=== PATIENT | male | born 2000 | race Two or more races ===

== ENCOUNTER 2022-01-22 10:00 | Outpatient (CLI) | payer OTHER | END 2022-01-22 10:07 | disposition home or self-care (01) | LOC: LAB 10:00 | PROVIDERS: ATTEND Internal Medicine Hematology & Oncology | DX: D45 Polycythemia vera (principal); D75.9 Disease of blood and blood-forming organs, unspecified ==

== ENCOUNTER 2022-01-28 08:26 | Outpatient (CLI) | payer OTHER | END 2022-01-28 08:28 | disposition home or self-care (01) | LOC: NUCLEAR 08:26 | PROVIDERS: ATTEND Internal Medicine Hematology & Oncology | DX: D45 Polycythemia vera (principal); R16.2 Hepatomegaly with splenomegaly, not elsewhere classified | CPT/HCPCS: 78215; A9541 ==